=== PATIENT | male | born 1970 | race Caucasian/White ===

== ENCOUNTER → 2017-06-15 | Outpatient (CLI) | payer OTHER | END | disposition home or self-care (01) | LOC: C.PATHSPEC 15:36 | PROVIDERS: ATTEND Urology | DX: R31.0 Gross hematuria (principal) ==

== ENCOUNTER → 2017-10-01 | Outpatient (CLI) | payer OTHER ==
[~2017-10-01] MED LIST: CHOL100010 PO; CIPR-255 PO; OXYC7.5T65 PO; PHEN-876 PO; TAMS0.4C38 PO
--- NOTE | 2017-10-01 10:45 | DIAGNOSTIC IMAGING REPORT ---
KUB CLINICAL HISTORY: N20.0 [id number] COMPARISON STUDY: 01/16/2012 FINDINGS: There is no pathologic bowel dilatation. There is a double-pigtail right-sided nephroureteral stent. No renal or ureteral calculi are visualized. IMPRESSION: 1. Double-pigtail right-sided nephroureteral stent 2. No urinary tract calculi are visualized on conventional radiographic imaging. Electronically signed by: Carlos James M.D. 10/01/2017 10:44 AM Dictated Date/Time: 10/01/2017 10:43 AM
== END | disposition home or self-care (01) ==
LOC: C.RAD 09:58
PROVIDERS: ATTEND Urology
DX: N20.0 Calculus of kidney (principal); Z96.0 Presence of urogenital implants